=== PATIENT | male | born 1950 | race Caucasian/White ===

== ENCOUNTER → 2016-03-30 | Outpatient (CLI) | payer MEDICARE, MEDICAID ==
[~2016-03-30] MED LIST: ALLOPURINOL100 MG PO; ANUSOL HC 25MG25 MG PR; ASPIRIN EC325 MG PO; BENADRYL 25MG C25 MG PO; BISOPROLOL 5MG T5 MG PO; CLOPIDOGREL75 M1 PO; COLCHICINE 0.60.6 MG PO; DOCUSATE SOD100 MG PO; ETODOLAC400 MG PO; FAMOTIDINE 20MG20 MG PO; FERROUS SULFAT325 M2 PO; HUMALOG PEN100 U/ML SC; HUMALOG100 U/M1 SC; HUMALOG100 U/ML SC; HYDROCHLOROTHIA25 M1 PO; HYDROXYZINE HCL25 MG PO; IBUPROFEN600 MG PO; INDOCIN25 M1 PO; INSULIN GL100 UNITS/ SC; INSULIN GL100 UNITS1 SC; KEFLEX 500MG.500 MG PO; LANTUS INS100 UNITS/ SC; LASIX40 MG PO; LISINOPRIL 20MG20 MG NG; LISINOPRIL 20MG20 MG PO; LISINOPRIL HCTZ1 TAB PO; LORAZEPAM0.5 MG/TAB FT; LORAZEPAM0.5 MG/TAB PO; LORTAB 5/500 501 TAB PO; METFORMIN 500M500 MG PO; METFORMIN500 MG PO; MIRALAX17 GM/PACK PO; NORCO 325 MG-51 TAB PO; ONDANSETRON 4MG4 M1 PO; PANTOPRAZOLE SO40 M1 PO; PANTOPRAZOLE SO40 MG PO; PEPCID 20MG TAB20 MG PO; PILOCARPINE OP; POTASSIUM CHLO20 ME2 PO; PREDNICOT20 MG PO; PREDNISONE 10MG10 MG PO; PREDNISONE 20MG20 MG PO; SEPTRA DS 800 M1 TAB PO; SIMVASTATIN20 MG PO; STERAPRED DS10 MG PO; TAMIFLU 75MG CA75 MG PO; TESSALON PERLE100 MG PO; TRIAMCINOLONE0.1% TP; TYLENOL W/CODEI1 TA2 PO; VENLAFAXINE37.5 MG PO; XANAX 0.5MG TA0.5 MG PO; ZITHROMAX Z PA250 MG PO; ZOFRAN4 MG PO; [UNRECOGNIZED DRUG - OTHER] OP
[2016-03-30 10:54] LABS: HEMOGLOBIN 10.2 g/dL (14.1-18.0); LYMPH # 0.8 K/mm3 (0.7-4.5); LYMPH % 19.6 % (10-50)
== END ==
LOC: LAB 10:33
PROVIDERS: Internal Medicine Hematology & Oncology
DX: D50.9 Iron deficiency anemia, unspecified (principal); D64.3 Other sideroblastic anemias; D59.1 Other autoimmune hemolytic anemias; K90.9 Intestinal malabsorption, unspecified

== ENCOUNTER → 2016-06-21 | Outpatient (CLI) | payer MEDICARE, MEDICAID ==
[2016-06-21 11:32] LABS: HEMOGLOBIN 9.9 g/dL (14.1-18.0); LYMPH # 0.8 K/mm3 (0.7-4.5); LYMPH % 23.4 % (10-50)
== END ==
LOC: LAB 09:58
PROVIDERS: Internal Medicine Hematology & Oncology
DX: D64.9 Anemia, unspecified (principal); D50.9 Iron deficiency anemia, unspecified; D59.1 Other autoimmune hemolytic anemias; K90.9 Intestinal malabsorption, unspecified

== ENCOUNTER → 2016-11-14 | Outpatient (CLI) | payer MEDICARE, MEDICAID ==
[2016-11-14 15:52] LABS: HEMOGLOBIN 9.2 g/dL (14.1-18.0); LYMPH # 0.8 K/mm3 (0.7-4.5)
== END ==
LOC: LAB 15:34
PROVIDERS: Internal Medicine Hematology & Oncology
DX: D64.9 Anemia, unspecified (principal); D50.9 Iron deficiency anemia, unspecified; D59.1 Other autoimmune hemolytic anemias; K90.9 Intestinal malabsorption, unspecified

== ENCOUNTER → 2016-12-12 | Outpatient (CLI) | payer MEDICARE, MEDICAID ==
[2016-12-12 12:00] LABS: HEMOGLOBIN 9.2 g/dL (14.1-18.0); LYMPH # 0.7 K/mm3 (0.7-4.5); LYMPH % 23.4 % (10-50)
[2016-12-12 12:24] LABS: BUN 16 mg/dL (7-18)
[2016-12-12 12:30] LABS: GFR (ESTIMATED) 67 ML/MIN (>60)
[2016-12-12 12:36] LABS: NEUTROPHILS 60 % (42-76)
[2016-12-13 08:45] LABS: Vitamin D, 25-Hydroxy 28.2 ng/mL (30.0-100.0)
== END ==
LOC: LAB 10:49
PROVIDERS: Internal Medicine Adolescent Medicine
DX: D59.1 Other autoimmune hemolytic anemias (principal); E53.8 Deficiency of other specified B group vitamins; M79.1 Myalgia; E11.9 Type 2 diabetes mellitus without complications; E55.9 Vitamin D deficiency, unspecified

== ENCOUNTER → 2017-02-02 | Outpatient (CLI) | payer MEDICARE, MEDICAID ==
[2017-02-02 12:01] LABS: LYMPH # 0.6 K/mm3 (0.7-4.5); LYMPH % 13.9 % (10-50)
[2017-02-02 12:08] LABS: HEMOGLOBIN 10.2 g/dL (14.1-18.0)
== END ==
LOC: LAB 11:44
PROVIDERS: Internal Medicine Hematology & Oncology
DX: D61.818 Other pancytopenia (principal)